=== PATIENT | female | born 1990 | race Caucasian/White ===

== ENCOUNTER 2016-12-24 11:24 | Emergency (ER) | payer MEDICAID ==
[~2016-12-24] VITALS: Ht 160 cm; Wt 99.8 kg
[2016-12-24 12:30] VITALS: BP 137/88
== END 2016-12-24 12:30 | disposition home or self-care (01) ==
LOC: ED 11:24
DX: L30.9 Dermatitis, unspecified (principal)

== ENCOUNTER 2018-09-25 17:45 | Emergency (ER) | payer MEDICAID ==
[~2018-09-25] VITALS: Ht 160 cm; Wt 102.5 kg
[2018-09-25 18:07] VITALS: Ht 160 cm; Wt 102.5 kg
[2018-09-25 20:30] VITALS: BP 134/69
== END 2018-09-25 20:30 | disposition home or self-care (01) ==
LOC: ED 17:45
DX: R21 Rash and other nonspecific skin eruption (principal); J02.9 Acute pharyngitis, unspecified; W57.XXXA Bitten or stung by nonvenomous insect and other nonvenomous arthropods, initial encounter; Y93.89 Activity, other specified; Y92.89 Other specified places as the place of occurrence of the external cause; Y99.8 Other external cause status